=== PATIENT | male | born 1970 | race Caucasian/White ===

== ENCOUNTER 2017-03-28 13:00 | Inpatient (IN) | payer OTHER ==
[~2017-03-28] VITALS: Ht 172.7 cm; Wt 95.0 kg
[2017-03-28 13:05] VITALS: BP 163/95; PULSE 107; RESP 20; O2SAT 97
--- NOTE | 2017-03-28 13:26 | ED.REPORT ---
HPI-Psychiatric Illness Date of Service Mar 28, 2017 ED Provider: Bola Graham MD The pt is a 46 y/o male w/ a hx of ARAVIND, PTSD, diabetes and bipolar disease presenting to the the ED via EMS from [facility]. He continues to state "I'm god " and admitted to smoking marijuana around 0900. He was seen at [facility] two days ago and was responsive to Haldol. A face to face evaluation was performed at 1405. Nursing Notes Stated Complaint: CONFUSED Chief Complaint: Psychiatric Complaint Nursing Notes Reviewed: Yes (BoatsGo, meds not reconciled) Allergies: Coded Allergies: No Known Allergies (Unverified Allergy, Unknown, 11/01/14) General Time Seen by MD: 13:25 Chief Complaint Bizarre behavior Hx Obtained From: Patient, EMS Arrived By: Ambulance Onset Occurred: Just prior to arrival Symptom Duration: Since onset Recent Healthcare: No recent hospitalization, Recent doctor visit Similar Sx Previous: Yes Risk-Psychiatric Illness Suicide Risk Stratification RF Statements: Risk factors reviewed Past Medical History Past Medical History he allegedly has a history of bipolar and PTSD with multiple prior ARAVIND's, but does not have records in his system so details are not available - information was made available to me by the BLACK LEATHER TRIMMER 03/29/17 week if the patient was recently seen in [facility], and a record request has een made Reports: Diabetes mellitus, Hypertension Past Surgical History rotary cuff repair Family History Mother had a stroke at the age of 56. Smoking History Former Smoker Ambulatory Status Independent Review of Systems Unable to Obtain ROS Patient condition Complete sys rev & neg: except as marked. Physical Exam Initial Vital Signs Vital Signs (First) Date Time Temp Pulse Resp B/P Pulse Ox O2 Delivery O2 Flow Rate FiO2 03/28/17 13:05 36.8 107 20 163/95 97 Room Air Initial VS: Reviewed, Vital signs abnormal (elevated HR) General/Constitutional: Awake, Alert Pt repeatedly screams "I am god", sings and says he is Ravi Moreira. Neurologic: Speech NL, No motor deficits Psychiatric: Not suicidal, Not homicidal Abnormal Mood/Affect: Positive: Elated, Inappropriate, Labile Abnormal Thinking / Perception: Positive: Insight abnormal, Judgment abnormal, Negative: Suicidal, no plan, Suicidal, with plan He gives very limited answers to questions. Demonstrate no insight or judgment. Patient repeatedly states that "I am God", and intermittently states the name "Ravi Moreira" over and over again, while displaying restlessness. He keeps trying to get up and fully remove all of his clothes. Increased psychomotor activity. I am concerned that the patient meets criteria for grave disability Head / Eyes: Atraumatic, Normocephalic ENT: Atraumatic, Airway patent, Mucous membranes moist Respiratory / Chest: Atraumatic, Breath sounds NL, Breath sounds = bilat, No respiratory distress, No rales, No rhonchi, No wheezing Cardiovascular: Heart rate NL, Regular rhythm, Heart sounds NL Abdomen: Atraumatic, Soft Skin: Atraumatic, Color NL, No rash, Warm, Dry Neck: Atraumatic, Supple, Full range of motion Upper Extremity / MS: Atraumatic, Full range of motion Lower Extremity / Pelvis / MS: Atraumatic, Full range of motion Interpretation & Diagnostics Lab Results Interpretation Result Diagram: 03/28/17 1345 03/28/17 1345 Test 03/28/17 13:25 03/28/17 13:45 Hold Urine Received (Received) White Blood Count 9.4th/mm3 (3.8-10.1) Red Blood Count 5.15mil/mm3 (4.40-5.80) Hemoglobin 15.8g/dL (13.8-17.2) Hematocrit 42.9% (41.0-50.0) Mean Corpuscular Volume 83.3fL (81-100) Mean Corpuscular Hemoglobin 30.7pg (27.0-35.0) Mean Corpuscular Hemoglobin Concent 36.8% (32.0-37.0) Red Cell Distribution Width 11.9% (12.3-15.4) Platelet Count 277bil/L (150-400) Neutrophils (%) (Auto) 56.8% (40-74) Lymphocytes (%) (Auto) 29.8% (14-46) Monocytes (%) (Auto) 11.4% (4-12) Eosinophils (%) (Auto) 1.3% (0-5) Basophils (%) (Auto) 0.5% (0-3) Sodium Level 135mEq/L (134-144) Potassium Level 3.7mEq/L (3.5-5.2) Chloride Level 95mEq/L (97-108) Carbon Dioxide Level 23mmol/L (18-29) Blood Urea Nitrogen 18mg/dL (6-24) Creatinine 0.83mg/dL (0.76-1.27) Estimat Glomerular Filtration Rate 106mL/min (>59) Glucose Level 147mg/dL (60-99) Calcium Level 9.8mg/dL (8.5-10.1) Total Bilirubin 1.5mg/dL (0.0-1.2) Aspartate Amino Transf (AST/SGOT) 51U/L (0-50) Alanine Aminotransferase (ALT/SGPT) 40U/L (0-44) Alkaline Phosphatase 73U/L (25-150) Total Protein 7.6g/dL (6.4-8.4) Albumin 4.5g/dL (3.4-5.0) Thyroid Stimulating Hormone (TSH) 0.576uIU/mL (0.450-4.500) Hold Ludwig Top Tube Received (Received) Lab Results Interpretation: CBC normal CMP normal Alcohol 0 Tox Screen positive marijuana, opiates, ecstasy (he admits to marijuana, and claims that C only drug he takes) Re-Eval/Medical Decision Med Decision/Clinical Course This is a 46-year-old male was brought by EMS acting bizarrely at [facility]. Patient was shouting that he is God, and he continues to do so here as well. He will answer very limited questions, but he is restless, keeps trying to take off all his clothes, he trying to elope and cannot really give me much additional history. There is very little of we have not seen him for a number of years in the emergency department. He indicated he had PTSD, however the BL[facility] LEATHER TRIMMER indicates mental health records indicated he is got a history of bipolar respite detained a multitude of times. He is reportedly been seen at [facility] recently, and we are attempting to obtain those records. The patient is singing loudly and innapopriately and keeps Trying to disrobe, Trying to get up and move into other patient's rooms and elope such that security was called, and ultimately he was moved into seclusion room and we gave him 10 mg of Zyprexa. Demonstrates a complete absence of judgment and insight. I could not get him to endorse any suicidal or homicidal ideation, but the patient does clinically appear gravely disabled. He does not appear overtly intoxicated or in withdrawal. Breathalyzer is negative. U tox is positive for active C along with his marijuana. Patient is adamant that he takes only marijuana. Labs are obtained and are normal. An acute medical issues not been identified. The patient appears to have a long psychiatric history and prior detainments. The BLACK LEATHER TRIMMER's been consulted. The patient's being turned over to the oncoming provider at change of shift with the DCR evaluation for probable ARAVIND anticipated Source of Hx: Old records (records from [facility]), EMS Re-Evaluation/Progress #1: Time of Eval: 14:05 Re-Evaluation/Progress Note: A face to face evaluation was performed. Re-Evaluation/Progress #2: Re-Evaluation/Progress Note: Patient evaluated by social work; to be admitted to mental health center here for further eval and mgmt. Counseled Regarding: Diagnosis, Lab results, Need for follow-up, When/why to return to ED Discharge & Departure Shift Change Sign-Out Patient Care Transferred: Yes Discussed Complaint(s): Yes Laboratory Evaluation: Lab evaluation discussed Impression: Primary Impression: Psychosis Additional Impression: Mood disorder Disposition: Home Discharge Condition All VS Reviewed: Yes Condition: Stable Referrals: Bindu Leonard MD (PCP) Care Transferred to: Dr. Miller Care Transferred at: 14:58 Scribe Attestation Portions of this note were transcribed by Ed Snyder. I, Dr. Graham personally performed the history, physical exam and medical decision-making; I reviewed and confirmed the accuracy of the information in the transcribed note. Signed by : Katie Coffey, 03/28/17 and 1440. copies to: Bindu Leonard MD, Matthew F MD Mar 28, 2017 13:26 Ed Snyder Mar 28, 2017 14:41 Lazaro Miller MD Mar 28, 2017 17:56
[2017-03-28] MEDS ORDERED: OLANZapine Zydis ODT 5 mg Tablet PO ONE (13:35)
[2017-03-28 13:56] LABS: BASOPHILS % (AUTO) 0.5 % (0-3)
[2017-03-28 14:07] LABS: EOSINOPHILS % (AUTO) 1.3 % (0-5); MONOCYTES % (AUTO) 11.4 % (4-12); Mean Corpuscular Hemoglobin 30.7 pg (27.0-35.0); Mean Corpuscular Volume 83.3 fL (81-100); NEUTROPHILS % (AUTO) 56.8 % (40-74); Platelet Count 277 bil/L (150-400)
[2017-03-28 17:18] VITALS: BP 157/110; PULSE 131; RESP 18; O2SAT 99
[2017-03-28] MEDS ORDERED: Alum-Mag Hydrox-Simeth 30 mL Suspension PO PRN (18:25)
[2017-03-28] MEDS ORDERED: Magnesium Hydroxide 10 mL Oral Concentration PO PRN (18:25)
[2017-03-28] MEDS ORDERED: LORazepam 1 mg Tablet PO PRN (18:35)
--- NOTE | 2017-03-28 19:20 | NUR ---
Nurses Admission Note 46 year old involuntary male brought to our ER by medics from the [facility] where he had been acting in a bizarre manner and undressing while proclaiming he was God. Patient was physically restrained in the ER and then in seclusion since he was unable to follow directions and threatened security staff. Patient had received Zyprexa Zydis 10 at 1334 with minimal effect in the ER but was able to rest. He arrived on the unit confused,disoriented having difficulty following directions. Patient continued to yell,sing loudly [place] [employer] [place] and dropping his pants every time he said,"I've had enough!" He accepted Zyprexa 5mg and Ativan 2mg at 1930 with little effect. Patient required 1:1 intervention to be redirected not to touch others and to keep his pants on. He ate a sandwich,had adequate fluids and eventually was redirected to his room,laid on his bed and fell asleep. Patient did not require the one time dose of Zyprexa Zydis 10mg. Will maintain q 15min. checks for safety and support.
--- NOTE | 2017-03-29 04:53 | NUR ---
Nursing Note Ribbon Inker 11pm to 7am Pt asleep at start of shift and remained asleep the duration of the shift. Monitored pt. for safety, location and accountability
[2017-03-29 10:00] VITALS: BP 135/92; PULSE 115; RESP 17
[2017-03-29] MEDS ORDERED: OLANZapine Zydis ODT 5 mg Tablet PO PRN (10:05)
--- NOTE | 2017-03-29 15:37 | NUR ---
Behavior Pt. maintained appropriate behavior so far, no disorientation, loud singing or stripped off his garments incident. He reported his mood is 10/10 very good in the mid-afternoon. He denied hallucinations.
--- NOTE | 2017-03-29 16:49 | NUR ---
Asphalt Paver/Counselor S:"I feel happy right now." O:Patient does not have any SI or HI, no depression or anxiety and no AH or VH. Slept for 8 hours. Participated in groups. A: Patient is disorganized and at times confused. Walks the hallways back and forth, pacing. P: Follow care plan and coordinate with outpatient providers.
--- NOTE | 2017-03-29 20:36 | HP ---
[address] [address] HISTORY AND PHYSICAL PATIENT: CYNDI REN : 1970 MR#: [id number] ADMIT: 03/28/2017 JOB ID: [id number] DATE OF ADMISSION: 03/28/2017 IDENTIFICATION OF PATIENT: This is a 46-year-old male who reportedly was admitted under ARAVIND status due to concern of grave disability. The patient reportedly had been found at a local casino, disrobed, and identified that he was God. CHIEF COMPLAINT: "I do not remember any of that." This is per patient report. HISTORY OF PRESENT ILLNESS: As stated above, the patient reports that he has no memory or recollection over the past 48 hours. He identified that he is aware that he had been using marijuana but was unaware that his urine tox screen was positive for oxycodone, amphetamine and ecstasy as well as THC. The patient identified that he does not recall using any substances. He was quite ashamed and embarrassed about the reference. He reports that he is currently living in [place]. He has his own home. He states that he was connected with the [employer] for 14 years and is 100% connected but did not pursue full correction due to a history of bipolar disorder. He reports that during his course of enlistment, he evidently suffered from significant episodes of ingrid and was actually hospitalized at [facility] in the past. He reports that he is currently connected with the [facility] here in [place] and was scheduled for an appointment last but missed the appointment. He reports that he has maintained on doses of Lamictal, Seroquel and BuSpar but could not elaborate on the doses. 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 He reports that he had been based in [place] for approximately 10 years with previous assignment to [employer] for approximately two years. He reports that he also has a previous history of psychiatric admission to [facility] in 2011 for evidence of depression. In meeting with myself, the patient was cooperative, polite. He maintained good eye contact. He openly identified that he has no awareness of the past 48 hours. He reportedly has received 25 mg of Zyprexa over the past 24 hours. He reports that he had been using marijuana with friends, but does not recall any ingestion of substances. He appeared to be very valid and reliable in his presentation. He denied any alcohol routine consumption, indicating that he will drink 2-4 drinks with friends but nothing on a daily basis. In reviewing previous history, as noted above, the patient did identify two separate hospitalizations, one to [facility], one to [facility] in the past. He indicates that he is diligent with his medications, but is unable to recall whether he actually took his medications over the past 48 hours. PAST MEDICAL HISTORY: Substantial for no allergies to medications. Medications of current allegedly are Lamictal, Seroquel, BuSpar. Other medical history was reviewed through the ER and I agree with their findings. PAST PSYCHIATRIC HISTORY: Substantial for the above information. SOCIAL HISTORY: The patient is , 100% service connected. He was never . No children. He recently graduated from [employer] with an AA in business. 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 He denies any history of trauma exposure. He denies any exposure to combat. FAMILY HISTORY: Positive for completion of suicide in his biological brother in 2007 by hanging. He also has a brother in [place] who has been treated for depression in the past. 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 MENTAL STATUS EXAM: General appearance: The patient is cooperative, polite, he is age appropriate in his demeanor and manner. His speech is of normal tone, frequency, and volume. His mood is neutral. Affect is congruent. His thought process showed no evidence of racing thoughts, flight of ideas, loose or disconnected thinking. He has no memory or recollection of the recent 48 hour events. He denied any evidence of suicidal or homicidal ideation. There was no evidence of active hallucinations, delusions. He was alert, oriented to time and place. His attention and concentration intact. Memory intact in the short term, group home, recent. Insight and judgment are fair. PHYSICAL EXAM: Vital signs are current. Temperature is unlisted, pulse is 131, respirations 18, BP 137/110. MEDICATION REVIEW: Zyprexa which she has received 25 mg total within the past 24 hours. Clarification of other doses will follow. ASSESSMENT: [place] I1. Bipolar disorder, type 1. 2. Cannabis use disorder. 3. Polysubstance use disorder. 4. Substance-induced psychoses probable. [place] IIDeferred. [place] IIINone. [place] IVStressors are noted for recent usage of substances. [place] VGlobal assessment of functioning current 35. PLANS: 1. Recommendation is for scheduled doses of Zyprexa 20 mg q.h.s. with p.r.n. doses of 10 mg q.6 p.r.n. for agitation. 2. Recommendation is for clarification of medications from the [facility]. 3. Probable release after 72 hours if the patient shows significant stabilization.
--- NOTE | 2017-03-29 20:51 | NUR ---
Observations 0900 - 0 Pt was labile, confused, disorganized and anxious. Pt was social with staff and peers. Pt was out on the unit most of the day, watching TV and pacing back and forth. Pt speech and eye contact was good. Pt is pleasant and friendly upon approach. Pt is polite and cooperative. Pt maintained behavior control throughout the shift. Pt attended community meeting and set a daily goal. Pt rated his mood 8/10, with 10 being the best. Pt stated his goal was to talk to the doctor. Pt attended meals in D.R. and ate 100% of meals. Pt ate snack. Pt was observed every 15 minutes throughout the shift as ordered.
[2017-03-29] MEDS ORDERED: OLANZapine Zydis ODT 5 mg Tablet PO SCH (21:00)
--- NOTE | 2017-03-30 06:44 | NUR ---
Nursing Note Lab Director 11pm to 0700am Pt asleep at start of shift and remained asleep for the duration without interruption. Pt woke at approx. 0600 and spent time in the day room talking appropriately with peers. Mood is calm and appears euthymic. No signs of thought disturbance noted. Monitored pt. for safety location and accountability.
[2017-03-30] MEDS: BusPIRone 15 mg Dividose Tablet PO SCH ×2 (11:28→20:46)
[2017-03-30] MEDS: lamoTRIgine 100 mg Tablet PO SCH (11:28)
--- NOTE | 2017-03-30 11:28 | PROG NOTE ---
[address] [address] PROGRESS NOTE PATIENT: CYNDI REN : 1970 MR#: [id number] ADMIT: 03/28/2017 JOB ID: [id number] DATE: 03/30/2017 CHIEF COMPLAINT: "I really miss my friends." This per patient report. HISTORY OF PRESENT ILLNESS: As stated above, the patient did meet with myself this morning. He became somewhat tearful, identifying that he greatly misses his friends and support system. He continues to identify that he is filled with regrets, remorse about the incident that led to his hospitalization. He indicates that unfortunately he has no memory or recollection of what occurred. He reports that he is willing to reinitiate his medications, and we have received confirmation of current medication administration from the [facility]. He reportedly has been maintained on doses of Seroquel 200 mg b.i.d., Lamictal 200 mg daily, BuSpar 20 mg b.i.d., and also scheduled doses of Lantus 42 units q.h.s. By history, the patient reportedly has had previous connections with both medical and mental health through the [place] office. OBJECTIVE: On mental status exam, he was bright, cooperative, interactive. He was tearful in discussing his absence of support at this time. He was encouraged to place calls with his friend about scheduling a pickup time for tomorrow. His speech was of normal tone, frequency, and volume. His mood was mildly depressed. His affect was congruent. His thought process showed no evidence of racing thoughts, flight of ideas, loose or disconnected thinking. Thought content, he denied any evidence of current suicidal, homicidal ideation. No evidence of active hallucinations, delusions. He was alert, oriented to time and place. Attention and concentration intact. Memory intact in the short term, [facility], recent. Insight and judgment are fair. PHYSICAL EXAM: Vital signs are current. Temperature is 36.4, pulse 115, respirations 17, BP 135/92. His recent glucometer reading was identified at 164 yesterday afternoon, 165 this morning, per staff report. CURRENT MEDICATIONS: 1. Zyprexa 20 mg q.h.s. 2. PRN doses of Ativan and Ambien. ASSESSMENT: AXIS I: 1. Bipolar disorder, most recent episode manic. 2. Cannabis use disorder. 3. Polysubstance use disorder. 4. Substance induced psychoses, resolving. AXIS II: Deferred. AXIS III: 1. History of diabetes type 2. 2. History of hypertension. AXIS IV: Stressors are noted for recent usage of hallucinogens including Ectasy, cannabis, and also chronic mental health issues. AXIS V: Global Assessment of Functioning current 35. PLANS: 1. Recommendations for probable discharge tomorrow for continuation of outpatient interventions. 2. Re-initiation of doses BuSpar 20 mg b.i.d., Lamictal 200 mg daily, Seroquel 200 mg b.i.d., trazodone p.r.n. 150 mg at h.s., Lantus 42 units q.h.s.
--- NOTE | 2017-03-30 16:01 | NUR ---
Hide Or Skin Buffer/Counselor S: "I'm doing ok." O:O: Patient denies any SI or HI, no anxiety or depression, and no auditory or visual hallucinations. He slept for 6 hours. A: Patient was cooperative and pleasant. Interacted with other patients and was pacing the hallways. He slept for 6 hours. At times disoriented. P: Follow care plan and coordinate with outpatient providers.
--- NOTE | 2017-03-30 16:37 | NUR ---
Nursing Note [id number] S: "I don't really remember what brought me here". "[place], walking around, and waiting for the pharmacy to open so I could get my prescription filled". "I remember trying to give my keys to someone in the parking lot-they wouldn't take them-I don't really know what that was about". O: Medication list received from MD, meds ordered per Dr Abdul. Tentative discharge for tomorrow. Denies hallucinations, SI/HI, anxiety, and current depression. A: Appropriate, cooperative with care. P: Monitor for response to treatment. Q 15 min checks for safety. Follow plan of care.
[2017-03-30 17:51] VITALS: BP 135/96; PULSE 109; RESP 16
--- NOTE | 2017-03-30 19:42 | NUR ---
Behavior P: Pt in group room. Interactive with other patients. Acting appropriately within setting I: Pt states he has no needs at present. Appears content. E: Continue to provide supportive environment
[2017-03-30] MEDS ORDERED: Insulin GLARgine 100 Unit/mL Syringe SUBQ SCH (21:00)
--- NOTE | 2017-03-31 05:28 | NUR ---
Sleep Adequate sleep through the night with no noted distress or awakening per protocol checks. Total sleep over 5.5 hours.
[2017-03-31] MEDS: BusPIRone 15 mg Dividose Tablet PO SCH (08:23)
[2017-03-31] MEDS: lamoTRIgine 100 mg Tablet PO SCH (08:23)
--- NOTE | 2017-03-31 10:09 | PCM.DIMED ---
Discharge Instructions Date of Service Mar 31, 2017 Dates of Hospitalization Mar 28, 2017 at 17:49 Discharge Diagnosis Discharge Diagnosis Bipolar DO 1 mixed Cannabis Use DO Polysusbstance Use DO Substance Induced psychosis Diet Discharge Diet: No restrictions Activity Discharge Activity: No restrictions David Abdul DO Mar 31, 2017 10:09
--- NOTE | 2017-03-31 11:01 | DIS ---
[address] [address] DISCHARGE SUMMARY PATIENT: CYNDI REN : 1970 MR#: [id number] ADMIT: 03/28/2017 JOB ID: [id number] DIS: ADMITTING DIAGNOSES: Include: AXIS I 1. Bipolar disorder, type 1, mixed. 2. Cannabis use disorder. 3. Polysubstance use disorder. 4. Substance-induced psychoses. AXIS II Deferred. AXIS III None. AXIS IV Stressors were noted for recent usage of substances, significant chronic illness. AXIS V Global Assessment of Functioning of current 35. DISCHARGE DIAGNOSES: Include: AXIS I 1. Bipolar disorder, type 1, mixed. 2. Cannabis use disorder. 3. Polysubstance use disorder. 4. Substance-induced psychoses. AXIS II Deferred. AXIS III None. AXIS IV Stressors were noted for recent usage of substances, significant chronic illness. AXIS V Global Assessment of Functioning of current 40. REASON FOR ADMISSION: The patient was a 46-year-old male who was admitted under ARAVIND status due to concerns of grave disability and acute psychoses. The patient reportedly had been [place] a local [place] and under the influence of drugs including oxycodone, amphetamine, ecstasy and THC. During the course of the hospitalization the patient was initially treated with doses of Zyprexa titrated to 25 mg within the first 24 hours. Over the next 48 hours the patient had substantial clearing of his sensation, sensorium and mentation. Throughout the hospital course the patient was appalled by the representation of information that led to the hospitalization. He was very embarrassed and openly identified that he believed that he was only using marijuana. He indicated that he has a long-term history of treatment through the [place] [facility] in [place] and has been monitored with documentation sent to the unit to review. He reportedly had been maintained on doses of Lamictal 200 mg daily, Seroquel 200 mg b.i.d., BuSpar 20 mg b.i.d. and also had a noted history of type 2 diabetes with the usage of Lantus. Throughout hospital course the patient participated in group activities and individual therapy, and showed significant insight into the need of remaining on his medications and also maintain a clean and sober lifestyle. There was no evidence of cause or reason to pursue continuation of hospitalization, and the patient was discharged accordingly. CONDITION AT THE TIME OF DISCHARGE: On the patient's mental status exam he was bright, cooperative, interactive. He denied any evidence of acute distress. His speech was of normal tone, frequency, and volume. His mood was neutral. Affect was congruent. His thought process showed no evidence of racing thoughts, flight of ideas, loose or disconnected thinking. Thought content, he denied any evidence of current suicidal or homicidal ideation. No evidence of active hallucinations or delusions. He was alert and oriented to time and place. Attention and concentration intact. Insight and judgment were fair. His recent glucometer readings within the past 24 hours were noted at 204. Yesterday evening at 8:30 and levels drawn this morning at 8 a.m., 155. He was encouraged to continue with his medical team accordingly. PLAN: 1. Recommendation to discharge with appropriate followup through the [place] [facility] system. ekg monitor tech are coordinating appointments both for psychiatry and his medical management. 2. Continuation of all medications as prior noted including: a. Seroquel 200 mg b.i.d. b. Lamictal 200 mg daily. c. BuSpar 20 mg b.i.d. d. Lantus 42 units q.h.s. No prescriptions were given.
--- NOTE | 2017-03-31 13:05 | NUR ---
Discharge Patient ambulated from unit accompanied by friend. Patient visible and social on unit, interacting appropriately with peers and staff. Patient alert and oriented x 3. Cooperative with care. Patient denies suicidal/homicidal ideation, hallucinations, depression or anxiety. Patient reports little memory of behavior prior to or immediately following admission. Discharge instructions, medications reviewed with patient prior to discharge. All questions addressed. Patient belongings and discharge instructions in hand. No prescriptions written, patient to follow up with Noa SINGH.
--- NOTE | 2017-03-31 16:40 | NUR ---
Pricing Director/Counselor S:"I'm glad to be going home today. O: Patient did not express any SI or HI, no AVH, and no anxiety or depression. A: Patient was discharged today. He has follow up appts with the [facility] in [place],both with the mental health provider and his PCP. He was very cooperative and pleasant all morning. He was out and about, talking to other patients. He was picked up by a friend who will take him to his house in [place]. P: Follow discharge plan. Patient was provided all necessary paperwork, including list of appts, phone number to the crisis clinic and safety plan.
== END 2017-03-31 13:05 | disposition home or self-care (01) | DRG 885 ==
LOC: SED 13:00 → MHC 17:49
PROVIDERS: ADMIT Psychiatry & Neurology Psychiatry; ATTEND Psychiatry & Neurology Psychiatry
DX: F31.60 Bipolar disorder, current episode mixed, unspecified (principal); F12.959 Cannabis use, unspecified with psychotic disorder, unspecified; E11.9 Type 2 diabetes mellitus without complications; I10 Essential (primary) hypertension; Z87.891 Personal history of nicotine dependence